=== PATIENT | female | born 1980 | race Caucasian/White ===

== ENCOUNTER 2019-07-06 16:09 | Emergency (ER) | payer OTHER ==
--- OUTSIDE RECORDS SUMMARY | 2019-07-06 16:16 | XMS REPORT | Summary of Care ---
:1980 Author Organization [facility] Address [address] [address] Care Team Providers Name Role Phone Heaven Carter Primary Care Provider Reason for Visit Reason Comments Follow Up zoloft increase-little change Encounter Details Date Type Department Care Team Description 05/28/2019 Office Visit [place] Carter, Anxiety and depression ( Primary Dx); Practice MD Heaven Acquired hypothyroidism; [address] [place] [address] [place] [address] [phone] Allergies Active Allergy Reactions Severity Noted Date Comments Scxrnrdqiz-Tudakraz-Xbwsdvkiq Dermatologic Reaction Medium 10/31/2017 Venomil White Faced Anaphylaxis 12/05/2018 documented as of this encounter (statuses as of 05/28/2019) Medications Medication Sig Dispensed Refills Start Date End Date Status levothyroxine TAKE ONE TABLET 90 Tab 1 04/07/2019 Active (SYNTHROID) 50 MCG Oral BY MOUTH BEFORE Tab BREAKFAST buPROPion (WELLBUTRIN TAKE ONE TABLET 180 Tab 1 04/07/2019 Active SR) 100 MG Oral TABLET BY MOUTH TWICE SR 12 HR DAILY cyclobenzaprine Take 1 Tab by 60 Tab 1 04/15/2019 Active (FLEXERIL) 10 MG Oral mouth THREE TIMES Tab DAILY NEEDED (muscle spasm). cetirizine (ZYRTEC) 10 Take 1 Tab by 30 Tab 1 04/18/2019 Active MG Oral Tab mouth DAILY. sertraline (ZOLOFT) 100 Take 2 Tabs by 180 Tab 0 05/12/2019 Active MG Oral Tab mouth DAILY. documented as of this encounter (statuses as of 05/28/2019) Active Problems Problem Noted Date Dyslipidemia 11/13/2017 Hypothyroidism Depression Anxiety and depression documented as of this encounter (statuses as of 05/28/2019) Immunizations Name Administration Dates Next Due Hepatitis B Vaccine 07/29/2012, 03/28/2012 Influenza (IM) Preservative Free 01/24/2019, 12/31/2017 MMR VACCINE 03/28/2012 PNEUMOCOCCAL POLYSACCHARIDE VACCINE 02/04/2018 TETANUS & DIPHTHERIA TOXOID (OVER 7 YRS) 10/28/2012 documented as of this encounter Social History Tobacco Use Types Packs/Day Years Used Date Current Every Day Smoker Cigarettes 0.5 Smokeless Tobacco: Never Used Tobacco Cessation: Ready to Quit: No; Counseling Given: Yes Alcohol Use Drinks/Week oz/Week Comments No Sex Assigned at Date Recorded Not on file documented as of this encounter Last Filed Vital Signs Vital Sign Reading Time Taken Comments Blood Pressure 124/60 05/28/2019 3:04 PM EST Pulse 67 05/28/2019 3:04 PM EST Temperature 37.4 05/28/2019 3:04 PM EST C (99.3 F) Respiratory Rate - - Oxygen Saturation 98% 05/28/2019 3:04 PM EST Inhaled Oxygen Concentration - - Weight 83.7 kg (184 lb 8 oz) 05/28/2019 3:04 PM EST Height 160 cm (5' 3") 05/28/2019 3:04 PM EST Body Mass Index 32.68 05/28/2019 3:04 PM EST documented in this encounter Patient Instructions Patient InstructionsHeaven Carter MD - 05/28/2019 3:00 PM EST1. Follow up in 3 months and as needed documented in this encounter Progress Notes Heaven Carter MD - 05/28/2019 3:00 PM EST Patient: Sintia Sol Date of Service: 05/28/2019 Subjective: Sintia Sol is a 39-y.o. female who presents for Chief Complaint Patient presents with ? Follow Up zoloft increase-little change Patient comes follow up anxiety/depression Generally doing well on current treatment most of the time. Still has significant mood swings before her period On maximum dose of Zoloft Doesn't want to try to increase Wellbutrin Past Medical History: Diagnosis Date ? Anxiety ? Depression ? Genital herpes ? Hypothyroidism Outpatient Medications as of 05/28/2019 Medication Sig Dispense Refill ? buPROPion (WELLBUTRIN SR) 100 MG Oral TABLET SR 12 HR TAKE ONE TABLET BY MOUTH TWICE DAILY 180 Tab 1 ? cetirizine (ZYRTEC) 10 MG Oral Tab Take 1 Tab by mouth DAILY. 30 Tab 1 ? cyclobenzaprine (FLEXERIL) 10 MG Oral Tab Take 1 Tab by mouth THREE TIMES DAILY NEEDED (muscle spasm). 60 Tab 1 ? levothyroxine (SYNTHROID) 50 MCG Oral Tab TAKE ONE TABLET BY MOUTH BEFORE BREAKFAST 90 Tab 1 ? sertraline (ZOLOFT) 100 MG Oral Tab Take 2 Tabs by mouth DAILY. 180 Tab 0 No current facility-administered medications on file as of 05/28/2019. Allergies Allergen Reactions ? Neosporin Original [Wtgmjmhvtq-Jandjjdn-Vrstpkmlq] Dermatologic Reaction ? Yellow [place]et Venom [Venomil White Faced] Anaphylaxis Review of Systems: All remaining review of systems was negative. Objective: BP 124/60 Pulse 67 Temp 99.3 F (37.4 C) (Tympanic) Ht 5' 3" (1.6 m) Wt 184 lb 8 oz (83.7kg) SpO2 98% BMI 32.68 kg/m2 General appearance: alert, well appearing, and in no distress. Mental Status: alert, oriented to person, place, and time, normal mood, behavior , speech, dress, motor activity, and thought processes. ICD-9-CM ICD-10-CM 1. Anxiety and depression 300.00 F41.9 311 F32.9 2. Acquired hypothyroidism 244.9 E03.9 FREE T4 THYROID STIMULATING HORMONE 3. Pre-menstrual syndrome 625.4 N94.3 DW patient option to increase Wellbutrin. Wants to wait Patient Instructions 1. Follow up in 3 months and as needed Author: Heaven Carter MD documented in this encounter Plan of Treatment Date Type Specialty Care Team Description 08/26/2019 Office Visit [facility] Heaven Carter MD [address] [place] [address] [phone] Name Type Priority Associated Diagnoses Date/Time FREE T4 Lab Routine Acquired hypothyroidism 05/28/2019 3:24 PM EST THYROID STIMULATING Lab Routine Acquired hypothyroidism 05/28/2019 3:24 PM HORMONE EST Health Maintenance Due Date Last Done Comments DEPRESSION SCREENING 04/15/2020 04/15/2019, 04/15/2019 PAP SMEAR 09/17/2020 09/17/2017 DTaP/Tdap/Td Vaccines (2 - 10/28/2022 10/28/2012 Tdap) LIPID DISORDER SCREENING 11/06/2022 11/06/2017 Colonoscopy 01/01/2023 01/01/2018 PNEUMOCOCCAL 0-64 YRS Completed 02/04/2018 INFLUENZA VACCINE Completed 01/24/2019, 12/31/2017 HEPATITIS A IMMUNIZATION Aged Out No longer eligible based SERIES on patient's age to complete this topic HPV IMMUNIZATION SERIES Aged Out No longer eligible based on patient's age to complete this topic MENINGOCOCCAL VACCINE IMM Aged Out No longer eligible based on patient's age to complete this topic documented as of this encounter Goals Goal Patient Goal Associated Recent Patient-Stated? Author Type Problems Progress Depression Depression 12 No tuan Carter (PHQ-9) (04/15/2019 Heaven, total score < 5 9:52 AM EST) Note: This is an individualized treatment (depression) goal for Sintia Ebenezer: Displayed above is your goal for a depression screening (PHQ-9) score that would indicate good control of your depression. Keep a regular sleep schedule Lifestyle Heaven Morales MD Note: This is an individualized lifestyle goal for Sintia Sol: Please maintain a regular sleep schedule. This may help with some symptoms of depression. Take all prescribed medications as Self-management Heaven Morales MD directed Note: This is an individualized self-management goal for Sintia Sol: Please take all prescribed medications as directed. 1. Do not skip doses. If you cannot afford your medications, talk with your doctor. 2. Use a pill reminder system such as a pill box if needed. Your pharmacist can help you with this. 3. Contact your Pharmacy 5 days before your medication runs out. If you cannot take your medications for any reasons, talk with your doctor. 4. Please bring all of your medication bottles and inhalers (or a list of all your medications/inhalers) with you to every visit. Potential barriers to meeting all of your care plan goals will continue to be addressed on an ongoing basis. documented as of this encounter Results Not on filedocumented in this encounter Visit Diagnoses Diagnosis Acquired hypothyroidism Unspecified hypothyroidism Anxiety and depression Dysthymic disorder Pre-menstrual syndrome Premenstrual tension syndromes documented in this encounter Insurance Payer Benefit Plan / Subscriber ID Effective Dates Phone Address Type Group LIFETIME LIFETIME BENEFIT [id number] 2014-Present [id number] documented as of this encounter
[2019-07-06 16:22] VITALS: BP 116/61
[2019-07-06] MEDS ORDERED: Fluorescein Sodium TOPICAL* 1 MG TEST STRIP OPHTHALMIC ONE (16:33)
[2019-07-06] MEDS ORDERED: Tetracaine 0.5% OPTH.SOL 4 ML* 1 DROP BTL RIGHT EYE ONE (16:33)
--- NOTE | 2019-07-06 16:49 | UC ---
Eye Complaint HPI - HPI Summary HPI Summary: 39-year-old female who has had some right eye discomfort today. She states she' s had some clear drainage. She said over the past day she's had a mild headache and a right earache which has resolved. No injury to her eyes and no pus drainage. She did instill drops this morning for red eye which did improve the redness. - History of Current Complaint Chief Complaint: UCEye Stated Complaint: RIGHT EYE PAIN Time Seen by Provider: 07/06/19 16:27 Hx Obtained From: Patient Hx Last Menstrual Period: 06/23/19 ?: No Onset/Duration: Gradual Onset, Lasting Hours Timing: Constant Severity Initially: Mild Severity Currently: Mild Pain Intensity: 4 Location of Injury: Other - No injury Aggravating Factor(s): Nothing Alleviating Factor(s): Eye Drops - She use drops this morning for red eye which improved the redness. She's had some clear drainage. She denies any orbital pain or cellulitis. Associated Signs And Symptoms: Positive: Drainage (Clear) - Allergies/Home Medications Allergies/Adverse Reactions: Allergies Allergy/AdvReac Type Severity Reaction Status Date / Time Triple Antibiotic Ointment Allergy Rash Uncoded 07/06/19 16:22 Home Medications: Home Medications Cetirizine* [ZyrTEC*] 10 mg PO QPM 01/03/15 [History Confirmed 07/06/19] Ibuprofen TAB* [Motrin TAB*] 800 mg PO TID PRN 01/03/15 [History Confirmed 07/05] Levothyroxine TAB* [Synthroid TAB*] 50 mcg PO DAILY 01/03/15 [History Confirmed 07/06/19] Sertraline* [Zoloft*] 100 mg PO DAILY 01/03/15 [History Confirmed 07/06/19] Bupropion XL* [Wellbutrin XL *] 100 mg PO BID 03/09/16 [History Confirmed ] Ibuprofen TAB* [Motrin TAB*] 600 mg PO QID PRN #40 tab 03/09/16 [Rx Confirmed ] Cyclobenzaprine TAB* [Flexeril 10 MG TAB*] 10 mg PO BID PRN #10 tab 07/15/18 [ Rx Confirmed 07/06/19] Naproxen Sodium [Naproxen 220 mg] 440 mg PO BID PRN 07/15/18 [History Confirmed 07/06/19] PMH/Surg Hx/FS Hx/Imm Hx Previously Healthy: Yes Endocrine History: Thyroid Disease - Surgical History Surgical History: Yes Surgery Procedure, Year, and Place: C-Sections, 2008 2011, [place] - Family History Known Family History: Negative: Cardiac Disease, Hypertension, Diabetes - Social History Occupation: Employed Full-time Lives: With Family Alcohol Use: Rare Substance Use Type: None Smoking Status (MU): Heavy Every Day Tobacco Smoker Type: Cigarettes Amount Used/How Often: 1/2 PPD Length of Time of Smoking/Using Tobacco: 15 Years Have You Smoked in the Last Year: Yes - Immunization History Most Recent Influenza Vaccination: February 2016 Review of Systems All Other Systems Reviewed And Are Negative: Yes Eyes: Positive: Drainage - Clear drainage today. She states this is more of eye irritation as opposed to eye pain., Eye Redness - Right eye redness this morning which has resolved as a result of using some drops for red eye. ENT: Positive: Ear Ache - Patient had a right earache yesterday which resolved. Is Patient Immunocompromised?: No Physical Exam Triage Information Reviewed: Yes Appearance: No Pain Distress, Well-Nourished Vital Signs: Initial Vital Signs Temp 99.4 F 07/06/19 16:18 Pulse 72 07/06/19 16:18 Resp 16 07/06/19 16:18 BP 116/61 07/06/19 16:18 Pulse Ox 98 07/06/19 16:18 Vital Signs Reviewed: Yes Eyes: Positive: Conjunctiva Clear, Other: - PERRLA, EOMI. No drainage at this point time. Orbit is not involved and nontender. No orbital erythema. Globe is intact. ENT: Positive: Hearing grossly normal, Pharynx normal, TMs normal, Uvula midline Neck: Positive: Supple, Nontender, No Lymphadenopathy Skin Exam: Normal Eye Complaint Course/Dx - Course Course Of Treatment: After instillation of tetracaine eyedrops the eye was visualized using magnifying lenses and no foreign bodies were noted. Fluorescein was then instilled and no corneal abrasions were noted using the Wood's lamp. At this point time I don't feel this is a bacterial conjunctivitis. I think it's more related to her seasonal allergies however she may be coming down with an illness. She is to follow-up with an plant assigner if she continues to have symptoms over the next 2-3 days. Patient is agreeable to this plan of action. - Differential Dx/Diagnosis Provider Diagnosis: Allergic conjunctivitis of right eye Discharge ED - Sign-Out/Discharge Documenting (check all that apply): Patient Departure All imaging exams completed and their final reports reviewed: No Studies - Discharge Plan Condition: Good Disposition: HOME Referrals: Heaven Carter MD [Primary Care Provider] - Additional Instructions: Avoid rubbing your eye, take Tylenol or Advil for pain. Follow-up with the plant assigner in 2 or 3 days if any worsening symptoms. - Billing Disposition and Condition Condition: GOOD Disposition: Home
== END 2019-07-06 17:00 | disposition home or self-care (01) ==
LOC: UCCORT 16:09
DX: H10.11 Acute atopic conjunctivitis, right eye (principal); E07.9 Disorder of thyroid, unspecified; Z79.890 Hormone replacement therapy; Z88.3 Allergy status to other anti-infective agents; F17.210 Nicotine dependence, cigarettes, uncomplicated
CPT/HCPCS: 99212; A9270-GY; G0463